=== PATIENT | female | born 1985 | race Caucasian/White ===

== ENCOUNTER → 2021-08-22 | Outpatient (CLI) | payer BC ==
--- NOTE | 2021-08-23 10:09 | MM ---
Reason for Exam: Screening (asymptomatic). Patient History: Menarche at age 9. First Full-Term at age 28. Premenopausal. Risk Values: Tiffany 5 year model risk: 0.5%. NCI Lifetime model risk: 12.3%. Tissue Density: The breast tissue is extremely dense which could obscure a lesion on mammography. Findings: Analyzed By CAD. Skin lesion right breast marked with circular marker. Single benign-appearing round calcification in the left breast. There is oval obscured 2.0 cm mass suspected in the left breast middle depth medial slightly inferior aspect cc slice 24 and MLO slice 32 approximately 4 to 5 cm distance from nipple. Overall Assessment: Incomplete: need additional imaging evaluation, BI-RAD 0 Management: Diagnostic Breast Ultrasound of the left breast. Whole left breast ultrasound targeting the B zone near the 8:00 position. Electronically signed and approved by: Jermaine Muller M.D.
== END | disposition home or self-care (01) ==
LOC: RADMAMWWP 09:00
PROVIDERS: ATTEND Family Medicine
DX: Z12.31 Encounter for screening mammogram for malignant neoplasm of breast (principal)
CPT/HCPCS: 77063; 77067

== ENCOUNTER → 2021-08-25 | Outpatient (CLI) | payer BC ==
--- NOTE | 2021-08-25 13:39 | USB ---
Reason for Exam: Additional evaluation requested from abnormal screening. Patient History: Menarche at age 9. First Full-Term at age 28. Premenopausal. Risk Values: Tiffany 5 year model risk: 0.5%. NCI Lifetime model risk: 12.3%. Technique: Method: Whole Breast Handheld. Prior Study Comparison: 08/22/2021 Bilateral MG 3D screening mammo w/cad, [facility]. Findings: The whole breast of the left breast, the axilla of the left breast and the retroareolar of the left breast were scanned. Whole left breast ultrasound including evaluation of subareolar and axillary regions shows 2 adjacent thin-walled cysts at 8:00 position measuring up to 1.8 cm long axis, one has thin septa. Findings correlate with mammogram. There are additional smaller benign thin-walled cysts at 10:00 position. Findings consistent with overall Fibrocystic change. Overall Assessment: Benign, BI-RAD 2 Management: Screening Mammogram of both breasts at age 39. Return to routine follow-up. Electronically signed and approved by: Jermaine Muller M.D.
== END | disposition home or self-care (01) ==
LOC: RADUSWWP 12:53
PROVIDERS: ATTEND Family Medicine
DX: R92.8 Other abnormal and inconclusive findings on diagnostic imaging of breast (principal)

== ENCOUNTER → 2024-06-08 | Outpatient (CLI) | payer BC ==
--- NOTE | 2024-06-08 14:19 | MM ---
Reason for Exam: Screening (asymptomatic). Last mammogram was performed 2 year(s) and 9 month(s) ago. Patient History: Menarche at age 9. First Full-Term at age 28. Premenopausal. Patient has history of breast feeding. Last menstrual period: 05/18/2024 Risk Values: Tiffany 5 year model risk: 0.7%. NCI Lifetime model risk: 12.1%. Prior Study Comparison: 08/22/2021 Bilateral MG 3D screening mammo w/cad, [facility]. Tissue Density: The breasts are extremely dense, which lowers the sensitivity of mammography. Findings: Analyzed By CAD. There is new 5.5 cm large circumscribed mass in the right breast and enlarging 5.2 cm oval circumscribed mass in the medial inferior left breast and adjacent 4.6 cm enlarged obscured mass in the left breast. Overall Assessment: Incomplete: need additional imaging evaluation, BI-RAD 0 Management: Diagnostic Breast Ultrasound of both breasts. Bilateral breast ultrasound. New and enlarging bilateral masses noted. Patient should continue monthly self-breast exams. A clinical breast exam by your physician is recommended on an annual basis. This exam should not preclude additional follow-up of suspicious palpable abnormalities. Note on Tiffany scores and lifetime risk: 1. A Tiffany score greater than 3% is considered moderate risk. If this is the case, consider specialist referral to assess eligibility for a risk reducing agent. 2. If overall lifetime risk for the development of breast cancer is 20% or higher, the patient may qualify for future screening with alternating mammogram and breast MRI. [facility], , 06/08/2024 2:15 PM. Electronically signed and approved by: Jermaine Muller M.D.
== END | disposition home or self-care (01) ==
LOC: RADMAMWWP 12:52
PROVIDERS: ATTEND Obstetrics & Gynecology
DX: Z12.31 Encounter for screening mammogram for malignant neoplasm of breast (principal); R92.343 Mammographic extreme density, bilateral breasts
CPT/HCPCS: 77063; 77067

== ENCOUNTER → 2024-06-15 | Outpatient (CLI) | payer BC ==
--- NOTE | 2024-06-15 10:41 | USB ---
Reason for Exam: Additional evaluation requested from abnormal screening. Patient History: Menarche at age 9. First Full-Term at age 28. Premenopausal. Patient has history of breast feeding. Risk Values: Tiffany 5 year model risk: 0.7%. NCI Lifetime model risk: 12.1%. Technique: Method: Targeted. Prior Study Comparison: 08/22/2021 Bilateral MG 3D screening mammo w/cad, [facility]. 06/08/2024 Bilateral MG 3D screening mammo w/cad, [facility]. Findings: The upper section of the breast of the right breast, the upper inner quadrant of the left breast, the axilla of both breasts and the retroareolar of both breasts were scanned. Technique utilized:US breast workup limited KRISTI Image; Ultrasound imaging of: All 4 quadrants, the retroareolar region and axilla. Bilateral breasts in area of palpable abnormalities with retroareolar and axillary imaging also performed bilaterally. No evidence for organizing fluid collection or mass. Right breast: Anechoic oval fluid collection at 12:00 2 cm from the nipple measuring 5.4 x 0.9 x 4.6 cm. Normal axillary lymph nodes on the right. Left breast: * Anechoic fluid collection at 9:00 2 cm from the nipple 5.3 x 1.8 x 5.1 cm. * Anechoic fluid collection at 10:00 4 cm from nipple 4.8 x 1.2 x 3.2 cm. Overall Assessment: Benign, BI-RAD 2 Management: Screening Mammogram of both breasts in 1 year. A clinical breast exam by your physician is recommended on an annual basis and results should be correlated with mammographic findings. This exam should not preclude additional follow-up of suspicious palpable abnormalities. Results were given to the patient verbally at the time of exam. [facility], , 06/15/2024 9:02 AM. Electronically signed and approved by: Dennis Shetty DO
== END | disposition home or self-care (01) ==
LOC: RADUSWWP 08:27
PROVIDERS: ATTEND Obstetrics & Gynecology
DX: R92.8 Other abnormal and inconclusive findings on diagnostic imaging of breast (principal)